=== PATIENT | female | born 1955 | race Caucasian/White ===

== ENCOUNTER 2017-10-10 13:45 | Emergency (ER) | payer MEDICARE, OTHER ==
[~2017-10-10] VITALS: Ht 162.6 cm; Wt 63.6 kg
[~2017-10-10 13:45] MED LIST: ACYC-202 PO; AMLO2.5T2 PO; DICL1ADH18 TD; HYDR-3965 PO; ONDA8TAB6 PO; THY15T PO; VAL5T PO
[2017-10-10] MEDS ORDERED: LORazepam 2 mg/ml vial IV ONE (15:00)
[2017-10-10] MEDS ORDERED: normal saline 1000ML IV soln IVB ONE (15:00)
[2017-10-10] MEDS ORDERED: metoclopramide 5 mg/ml inj IV ONE (15:00)
[2017-10-10] MEDS ORDERED: diphenhydrAMINE 50 mg/ml inj IV ONE (15:00)
[2017-10-10] MEDS ORDERED: ketorolac tromethamine 15mg/ml inj. IV ONE (15:05)
[2017-10-10 16:01] LABS: BASOPHILS % (AUTO) 0.2 % (0-1); EOSINOPHILS % (AUTO) 0 % (0-6); HEMATOCRIT 43.6 % (35.0-45.0); HEMOGLOBIN 14.9 g/dl (12.0-16.0); LYMPHOCYTES # (AUTO) 1.8 X10'3 (1.1-4.8); LYMPHOCYTES % (AUTO) 9.6 % (21-51); MEAN CORPUSCULAR HEMOGLOBIN 29.7 PG (27.0-31.0); MEAN CORPUSCULAR HGB CONC 34.1 % (33.0-36.5); MEAN PLATELET VOLUME 8.6 FL (7.4-10.4); MONOCYTES # (AUTO) 1.2 X10'3 (0-0.9); MONOCYTES % (AUTO) 6.4 % (2-12); NEUTROPHILS # (AUTO) 16.1 X10'3 (1.8-7.7); NEUTROPHILS % (AUTO) 83.8 % (42-75); PLATELET COUNT 250 X10'3 (140-440); RED BLOOD COUNT 5.01 X10'6 (4.20-5.60); RED CELL DISTRIBUTION WIDTH 14.5 % (11.5-14.5); WHITE BLOOD COUNT 19.2 X10'3 (4.5-11.0)
[2017-10-10 16:30] LABS: ALANINE AMINOTRANSFERASE 49 U/L (12-78); ALBUMIN 4.2 G/DL (3.4-5.0); ALBUMIN/GLOBULIN RATIO 1.4 (1.1-1.5); ALKALINE PHOSPHATASE 60 IU/L (46-116); ANION GAP 12 (8-16); ASPARTATE AMINO TRANSFERASE 20 U/L (10-37); BILIRUBIN,TOTAL 0.4 MG/DL (0.1-1.0); BLOOD UREA NITROGEN 22 MG/DL (7-18); BUN/CREATININE RATIO 23.9 (6.6-38.0); CALCIUM 8.2 MG/DL (8.5-10.1); CHLORIDE 104 MMOL/L (99-107); CREATININE 0.92 MG/DL (0.40-0.90); GLUCOSE 174 MG/DL (70-104); LIPASE 71 U/L (73-393); POTASSIUM 3.5 MMOL/L (3.5-5.1); SODIUM 140 MMOL/L (135-145); TOTAL CARBON DIOXIDE 24.4 MMOL/L (24-32); TOTAL PROTEIN 7.1 G/DL (6.4-8.2); eGFR 62 ML/MIN
[2017-10-10 16:46] LABS: CLARITY,URINE CLEAR (Clear); COLOR,URINE YELLOW (Yellow); GLUCOSE, URINE 250 mg/dl (Neg); KETONES,URINE TRACE mg/dl (Neg); LEUKOCYTE ESTERASE ,URINE NEGATIVE (Neg); NITRITES, URINE NEGATIVE (Neg); OCCULT BLOOD,URINE LARGE (Neg); PROTEIN,URINE NEGATIVE (Neg); UROBILINOGEN,URINE 0.2 E.U/dL (0.2-1.0)
[2017-10-10 16:50] LABS: UA COLLECTION TYPE CLN CATCH MIDSTREAM
[2017-10-10 16:52] LABS: BACTERIA,URINE FEW /HPF (Neg); MUCUS STRANDS FEW /LPF (Neg); SQUAMOUS EPITHELIAL CELL,UR FEW /LPF (FEW); WBC,URINE 0-4 /HPF (0-4)
[2017-10-10 17:31] VITALS: BP 120/72
[2017-10-10] MEDS ORDERED: ONDA4TAB9 SL (17:59)
[2017-10-10] MEDS ORDERED: LORA-269 PO (17:59)
[2017-10-10] MEDS ORDERED: FLO0.4C PO (17:59)
== END 2017-10-10 19:06 | disposition home or self-care (01) ==
LOC: ER 13:46
DX: N20.0 Calculus of kidney (principal); R16.0 Hepatomegaly, not elsewhere classified; D72.829 Elevated white blood cell count, unspecified; E78.00 Pure hypercholesterolemia, unspecified; E03.9 Hypothyroidism, unspecified; Z90.710 Acquired absence of both cervix and uterus; Z79.899 Other long term (current) drug therapy
CPT/HCPCS: 36415; 74176; 80053; 81001; 83605; 83690; 84145; 85025; 85610; 96361; 96374; 96375; 99285; J1200; J1885; J2060; J2765; J7030

== ENCOUNTER 2018-10-25 23:36 | Inpatient (IN) | payer MEDICARE, OTHER ==
[~2018-10-25] VITALS: Ht 162.6 cm; Wt 59.1 kg
[~2018-10-25 23:36] MED LIST changes: +LORA-269 PO
[2018-10-26 00:33] LABS: EOSINOPHILS % (AUTO) 0 % (0-6); HEMOGLOBIN 17.4 g/dl (12.0-16.0)
[2018-10-26 00:34] LABS: BASOPHILS % (AUTO) 0.2 % (0-1); HEMATOCRIT 50.4 % (35.0-45.0); LYMPHOCYTES # (AUTO) 1.7 X10'3 (1.1-4.8); LYMPHOCYTES % (AUTO) 7.4 % (21-51); MEAN CORPUSCULAR HEMOGLOBIN 29.7 PG (27.0-31.0); MEAN CORPUSCULAR HGB CONC 34.5 g/dL (33.0-36.5); MEAN PLATELET VOLUME 9.6 FL (7.4-10.4); MONOCYTES % (AUTO) 4.5 % (2-12); NEUTROPHILS # (AUTO) 20.1 X10'3 (1.8-7.7); NEUTROPHILS % (AUTO) 87.9 % (42-75); PLATELET COUNT 295 X10'3 (140-440); RED BLOOD COUNT 5.86 X10'6 (4.20-5.60); RED CELL DISTRIBUTION WIDTH 14.8 % (11.5-14.5); WHITE BLOOD COUNT 22.9 X10'3 (4.5-11.0)
[2018-10-26 00:40] LABS: ALANINE AMINOTRANSFERASE 46 U/L (12-78); ALBUMIN 4.8 G/DL (3.4-5.0); ALBUMIN/GLOBULIN RATIO 1.2 (1.1-1.5); ALKALINE PHOSPHATASE 89 IU/L (46-116); ANION GAP 19 (8-16); BILIRUBIN,TOTAL 0.7 MG/DL (0.1-1.0); BLOOD UREA NITROGEN 17 MG/DL (7-18); BUN/CREATININE RATIO 17.3 (6.6-38.0); CHLORIDE 99 MMOL/L (99-107); CREATININE 0.98 MG/DL (0.40-0.90); GLUCOSE 286 MG/DL (70-104); SODIUM 137 MMOL/L (135-145); TOTAL CARBON DIOXIDE 18.9 MMOL/L (24-32); TOTAL PROTEIN 8.8 G/DL (6.4-8.2); eGFR 58 ML/MIN
[2018-10-26 00:41] LABS: URINE HCG NEGATIVE (NEG)
[2018-10-26 00:43] LABS: ASPARTATE AMINO TRANSFERASE 31 U/L (10-37); CALCIUM 9.9 MG/DL (8.5-10.1)
[2018-10-26 01:25] LABS: CLARITY,URINE CLEAR (Clear); COLOR,URINE YELLOW (Yellow); GLUCOSE, URINE >=1000 mg/dl (Neg); KETONES,URINE 15 mg/dl (Neg); LEUKOCYTE ESTERASE ,URINE NEGATIVE (Neg); NITRITES, URINE NEGATIVE (Neg); OCCULT BLOOD,URINE MODERATE (Neg); PH,URINE 5.5 (4.8-8.0); PROTEIN,URINE >=300 mg/dl (Neg); UROBILINOGEN,URINE 0.2 E.U/dL (0.2-1.0)
[2018-10-26 01:33] LABS: UA COLLECTION TYPE CLN CATCH MIDSTREAM
[2018-10-26] MEDS ORDERED: ondansetron/PF 4mg/2ml inj IV ONE ×2 (01:35→06:50)
--- NOTE | 2018-10-26 01:57 | NUR ---
PT DESCRIBES HER PAIN "BURNING IN MY THROAT" OR "MY STOMACH IS CRAMPING." ASKED MD FOR HUNG AND MD ELIZABET ORDERED ELIZABET.
[2018-10-26 02:28] LABS: WBC,URINE 0-4 /HPF (0-4)
[2018-10-26 02:29] LABS: BACTERIA,URINE NONE SEEN /HPF (Neg); MUCUS STRANDS MODERATE /LPF (Neg); SQUAMOUS EPITHELIAL CELL,UR FEW /LPF (FEW)
[2018-10-26] MEDS ORDERED: famotidine/PF 10 mg/ml inj IV ONE (02:30)
[2018-10-26] MEDS ORDERED: normal saline 1000ML IV soln IVB ONE ×2 (02:30→04:50)
[2018-10-26 02:40] LABS: LIPASE 51 U/L (73-393)
--- NOTE | 2018-10-26 03:05 | NUR ---
CALLED LAB ABOUT PROLONGED LAB RESULTS. NO EXPLANATION FOR TIME
--- NOTE | 2018-10-26 03:09 | NUR ---
PT SLEEPING IN ROOM. SIDE RAILS UP. WILL CONTINUE TO MONITOR.
[2018-10-26 03:10] LABS: LARGE PLATELETS FEW; PLATELET ESTIMATE NORMAL
--- NOTE | 2018-10-26 03:18 | NUR ---
MD JENKINS AWARE OF WBC FINALLY RESULTING. ORDERS EXPECTED.
[2018-10-26] MEDS ORDERED: piperacillin/tazo 3.375gm/50ml 50 ML IV ONE (04:55)
[2018-10-26] MEDS: normal saline 1000ml 1,000 ML IV ONE ×2 (05:04→06:34)
[2018-10-26] MEDS ORDERED: iohexol 300mg/ml 100ml inj. ONE (05:04)
--- NOTE | 2018-10-26 05:46 | NUR ---
ASKED PT IF SHE WOULD LIKE THE PRN MORPHINE THAT MD ORDERED, PT REFUSED AND STATED "I'M NOT LIKE THAT. I DON'T WANT THAT STUFF."
[2018-10-26] MEDS: morphine 2 MG/ML inj. syringe IV PRN ×2 (06:29→08:51)
[2018-10-26] MEDS: normal saline 1000ml 1,000 ML IV SCH ×3 (08:44→23:29)
[2018-10-26] MEDS ORDERED: magnesium Cl slow-release 64mg tablet PO PRN (08:45)
[2018-10-26] MEDS ORDERED: HYDROcodone/acetaminophen 10/325mg tab PO PRN (08:45)
[2018-10-26] MEDS ORDERED: HYDROcodone/acetaminophen 5mg/325mg tablet PO PRN ×2 (08:45→13:40)
[2018-10-26] MEDS ORDERED: magnesium 4gm in 100ml NS 100 ML IV PRN (08:45)
[2018-10-26] MEDS ORDERED: potassium Cl 20 mEq SR tablet PO PRN (08:45)
[2018-10-26] MEDS ORDERED: bisacodyl 10mg suppository rectal RC PRN (08:45)
[2018-10-26] MEDS ORDERED: acetaminophen 325mg tablet PO PRN (08:45)
[2018-10-26] MEDS ORDERED: magnesium 2GM in 50ml NS 50 ML IV PRN (08:45)
[2018-10-26] MEDS ORDERED: LOSA25TA96 PO (08:47)
[2018-10-26] MEDS ORDERED: THY60T PO (08:47)
[2018-10-26] MEDS ORDERED: AMLO-309 PO (08:47)
[2018-10-26] MEDS ORDERED: PANT40TA4 PO (08:47)
[2018-10-26] MEDS ORDERED: ACYC-202 PO (08:47)
[2018-10-26] MEDS ORDERED: nifedipine PO (08:47)
[2018-10-26] MEDS ORDERED: losartan 25mg tablet PO ONE (09:05)
[2018-10-26] MEDS ORDERED: losartan 25mg tablet PO SCH (09:05)
--- NOTE | 2018-10-26 09:30 | NUR ---
Report received from ED RNBal.
--- NOTE | 2018-10-26 09:45 | NUR ---
DOMINGO Mas to receive pt instead of myself. Report given.
[2018-10-26] MEDS: metoclopramide 5 mg/ml inj IV PRN ×2 (09:51→18:59)
[2018-10-26] MEDS ORDERED: pantoprazole 40 MG vial IV SCH (09:55)
[2018-10-26 10:00] VITALS: BP 164/87
--- NOTE | 2018-10-26 10:00 | NUR ---
Patient arrived to the floor. VSS. c/o nausea, reglan given
[2018-10-26 11:00] VITALS: BP 156/81
[2018-10-26 13:12] LABS: H PYLORI ANTIBODY NEGATIVE (Neg)
[2018-10-26] MEDS ORDERED: metoclopramide 10mg tablet PO PRN (13:30)
[2018-10-26] MEDS ORDERED: THYR90TA PO (13:48)
[2018-10-26] MEDS: atorvastatin 10mg tablet PO SCH (14:38)
[2018-10-26] MEDS: amLODIPine 2.5mg tablet PO SCH (14:38)
[2018-10-26] MEDS: piperacillin/tazo 3.375gm/50ml 50 ML IV SCH ×2 (16:25→23:57)
[2018-10-26] MEDS: ondansetron/PF 4mg/2ml inj IV PRN ×2 (16:28→22:01)
[2018-10-26] MEDS: mag hydrox/Alum hydrox/simeth 30ml oral suspension PO PRN (17:55)
--- NOTE | 2018-10-26 18:11 | NUR ---
Problems reprioritized. Patient report given, questions answered & plan of care reviewed with DOMINGO Pisano.
[2018-10-26 19:10] VITALS: BP 172/94
[2018-10-26] MEDS ORDERED: temazepam 15mg capsule PO PRN (21:00)
[2018-10-26] MEDS ORDERED: ATORVASTATIN PO SCH (21:00)
[2018-10-26] MEDS ORDERED: AMLODIPINE PO SCH (21:00)
[2018-10-26] MEDS: diatr meglu/diatrizoate 30ml oral sol.-(3 dose) bottle PO SCH (21:31)
[2018-10-26] MEDS: lactobacillus rhamnosus 10,000 MMU CELLS/CAPSULE PO SCH (21:31)
[2018-10-27] VITALS (8 sets, daily range): BP systolic 105–172; BP diastolic 74–98
[2018-10-27] MEDS: metoclopramide 5 mg/ml inj IV PRN ×2 (02:22→23:26)
[2018-10-27] MEDS: mag hydrox/Alum hydrox/simeth 30ml oral suspension PO PRN ×3 (04:26→17:27)
[2018-10-27 05:17] LABS: BASOPHILS # (AUTO) 0.1 X10'3 (0-0.2); BASOPHILS % (AUTO) 0.3 % (0-1); EOSINOPHILS % (AUTO) 0.1 % (0-6); HEMATOCRIT 49.5 % (35.0-45.0); HEMOGLOBIN 16.9 g/dl (12.0-16.0); LYMPHOCYTES # (AUTO) 3.2 X10'3 (1.1-4.8); LYMPHOCYTES % (AUTO) 14.5 % (21-51); MEAN CORPUSCULAR HEMOGLOBIN 29.3 PG (27.0-31.0); MEAN CORPUSCULAR HGB CONC 34.1 g/dL (33.0-36.5); MEAN CORPUSCULAR VOLUME 85.8 FL (78-98); MEAN PLATELET VOLUME 9.3 FL (7.4-10.4); MONOCYTES # (AUTO) 1.5 X10'3 (0-0.9); MONOCYTES % (AUTO) 6.8 % (2-12); NEUTROPHILS # (AUTO) 17.6 X10'3 (1.8-7.7); NEUTROPHILS % (AUTO) 78.3 % (42-75); PLATELET COUNT 281 X10'3 (140-440); RED BLOOD COUNT 5.77 X10'6 (4.20-5.60); RED CELL DISTRIBUTION WIDTH 14.7 % (11.5-14.5); WHITE BLOOD COUNT 22.5 X10'3 (4.5-11.0)
[2018-10-27 05:40] LABS: ALBUMIN 4.3 G/DL (3.4-5.0); ALBUMIN/GLOBULIN RATIO 1.2 (1.1-1.5); ANION GAP 15 (8-16); ASPARTATE AMINO TRANSFERASE 26 U/L (10-37); BLOOD UREA NITROGEN 9 MG/DL (7-18); BUN/CREATININE RATIO 14.5 (6.6-38.0); CHLORIDE 101 MMOL/L (99-107); CREATININE 0.62 MG/DL (0.40-0.90); GLUCOSE 155 MG/DL (70-104); MAGNESIUM 2.3 MG/DL (1.5-2.4); PHOSPHORUS 1.5 MG/DL (2.3-4.5); SODIUM 138 MMOL/L (135-145); TOTAL CARBON DIOXIDE 22.5 MMOL/L (24-32); TOTAL PROTEIN 7.9 G/DL (6.4-8.2); eGFR > 90 ML/MIN
[2018-10-27 05:41] LABS: ALANINE AMINOTRANSFERASE 37 U/L (12-78); ALKALINE PHOSPHATASE 82 IU/L (46-116)
[2018-10-27 06:21] LABS: POTASSIUM 2.9 MMOL/L (3.5-5.1)
--- NOTE | 2018-10-27 06:49 | NUR ---
Problems reprioritized. Patient report given, questions answered & plan of care reviewed with MIKA. Addendum: 10/27/18 at 0649 by Brett Preston RN Amended: Links added.
[2018-10-27] MEDS: diatr meglu/diatrizoate 30ml oral sol.-(3 dose) bottle PO SCH ×2 (07:24→13:45)
[2018-10-27] MEDS: potassium CL 10mEq/100ml bag 100 ML IV PRN ×3 (07:24→21:42)
[2018-10-27] MEDS: enoxaparin 40mg/0.4ml syringe SQ SCH (08:00)
[2018-10-27] MEDS: K and/or MAG REPLACEMENT MC SCH (08:00)
[2018-10-27] MEDS ORDERED: iohexol 300mg/ml 100ml inj. ONE (09:05)
[2018-10-27] MEDS: HYDROmorphone inj. 0.5 MG/0.5 ML DISP.SYRIN IV PRN (09:27)
[2018-10-27] MEDS: piperacillin/tazo 3.375gm/50ml 50 ML IV SCH ×3 (10:09→23:27)
[2018-10-27] MEDS: amLODIPine 2.5mg tablet PO SCH (11:07)
[2018-10-27] MEDS: thyroid, pork 30mg tablet PO SCH (11:07)
[2018-10-27] MEDS: losartan 25mg tablet PO SCH (11:08)
[2018-10-27] MEDS: atorvastatin 10mg tablet PO SCH (11:08)
[2018-10-27] MEDS: lactobacillus rhamnosus 10,000 MMU CELLS/CAPSULE PO SCH ×2 (11:08→19:59)
--- NOTE | 2018-10-27 11:24 | NUR ---
Malnutrition consult: Per wt hx pt -4.55 kg since last visit with documented wt of 63.64 kg 10/10/17, this is non-significant wt loss of 7% in one year. Pt currently NPO. Pt with no documented decrease in muscle strength and no edema. Per H&P pt appears well-nourished. Pt currently does not meet criteria for malnutrition. Will continue to follow. Addendum: 10/27/18 at [address] Amended: Links added.
[2018-10-27 11:32] LABS: HEMOGLOBIN A1C 5.8 % (4.5-6.2)
[2018-10-27] MEDS: potassium Cl 20 mEq SR tablet PO PRN ×2 (12:12→17:24)
[2018-10-27] MEDS: normal saline 1000ml 1,000 ML IV SCH (12:13)
[2018-10-27] MEDS ORDERED: LIDOcaine Viscous 15ml cup ONE (13:21)
[2018-10-27] MEDS ORDERED: MIDAZolam 5mg/5ml vial ONE (13:21)
[2018-10-27] MEDS ORDERED: fentaNYL/PF 50MCG/1 ML 2ML syringe ONE (13:21)
[2018-10-27] MEDS: ESOMEPRAZOLE 40 MG VIAL IV SCH (15:36)
[2018-10-27] MEDS ORDERED: Potassium Cl inj 20 MEQ in normal saline 1000ml 990 ML IV SCH (16:30)
--- NOTE | 2018-10-27 18:27 | NUR ---
Problems reprioritized. Patient report given, questions answered & plan of care reviewed with DOMINGO Enriquez.
--- NOTE | 2018-10-27 18:44 | NUR ---
Patient in room [facility]. I have received report from DOMINGO Meehan and had the opportunity to ask questions and assume patient care.
[2018-10-27] MEDS: ondansetron/PF 4mg/2ml inj IV PRN (21:02)
[2018-10-27] MEDS ORDERED: normal saline 1000ml 1,000 ML IV PRN (21:30)
[2018-10-28 00:56] VITALS: BP 180/96
[2018-10-28] MEDS: potassium CL 10mEq/100ml bag 100 ML IV PRN (01:06)
[2018-10-28] MEDS: potassium Cl 20mEq in NS 1,000 ML IV SCH ×3 (02:57→16:23)
[2018-10-28] MEDS: metoclopramide 5 mg/ml inj IV PRN ×2 (04:54→20:09)
[2018-10-28 04:59] LABS: BASOPHILS # (AUTO) 0.1 X10'3 (0-0.2); BASOPHILS % (AUTO) 0.5 % (0-1); EOSINOPHILS % (AUTO) 0.1 % (0-6); HEMATOCRIT 48.4 % (35.0-45.0); HEMOGLOBIN 16.2 g/dl (12.0-16.0); LYMPHOCYTES # (AUTO) 3.8 X10'3 (1.1-4.8); LYMPHOCYTES % (AUTO) 21.2 % (21-51); MEAN CORPUSCULAR HGB CONC 33.5 g/dL (33.0-36.5); MEAN CORPUSCULAR VOLUME 86.4 FL (78-98); MEAN PLATELET VOLUME 8.9 FL (7.4-10.4); MONOCYTES # (AUTO) 1.6 X10'3 (0-0.9); MONOCYTES % (AUTO) 8.7 % (2-12); NEUTROPHILS # (AUTO) 12.6 X10'3 (1.8-7.7); NEUTROPHILS % (AUTO) 69.5 % (42-75); PLATELET COUNT 281 X10'3 (140-440); RED CELL DISTRIBUTION WIDTH 14.6 % (11.5-14.5); WHITE BLOOD COUNT 18.1 X10'3 (4.5-11.0)
[2018-10-28 05:24] LABS: ANION GAP 12 (8-16); BILIRUBIN,TOTAL 0.9 MG/DL (0.1-1.0); BLOOD UREA NITROGEN 10 MG/DL (7-18); BUN/CREATININE RATIO 23.8 (6.6-38.0); CALCIUM 8.5 MG/DL (8.5-10.1); CHLORIDE 102 MMOL/L (99-107); CREATININE 0.42 MG/DL (0.40-0.90); GLUCOSE 127 MG/DL (70-104); MAGNESIUM 2.4 MG/DL (1.5-2.4); POTASSIUM 3.9 MMOL/L (3.5-5.1); SODIUM 136 MMOL/L (135-145); TOTAL CARBON DIOXIDE 22.1 MMOL/L (24-32); TOTAL PROTEIN 7.2 G/DL (6.4-8.2); eGFR > 90 ML/MIN
[2018-10-28 05:25] LABS: ALANINE AMINOTRANSFERASE 37 U/L (12-78); ALBUMIN/GLOBULIN RATIO 1.3 (1.1-1.5); ALKALINE PHOSPHATASE 78 IU/L (46-116); ASPARTATE AMINO TRANSFERASE 19 U/L (10-37)
[2018-10-28 05:29] LABS: PHOSPHORUS 1.1 MG/DL (2.3-4.5)
--- NOTE | 2018-10-28 06:12 | NUR ---
Problems reprioritized. Patient report given, questions answered & plan of care reviewed with DOMINGO Child. Addendum: 10/28/18 at 0615 by Mina Britton RN DOMINGO Snow
--- NOTE | 2018-10-28 06:30 | NUR ---
Patient in room [facility]. I have received report from Mina LANE and had the opportunity to ask questions and assume patient care.
[2018-10-28 07:59] VITALS: BP 160/87
[2018-10-28] MEDS: atorvastatin 10mg tablet PO SCH (08:00)
[2018-10-28] MEDS: enoxaparin 40mg/0.4ml syringe SQ SCH (08:00)
[2018-10-28] MEDS: thyroid, pork 30mg tablet PO SCH (08:00)
[2018-10-28] MEDS: duloxetine 20mg capsule.DR PO SCH (08:00)
[2018-10-28] MEDS: lactobacillus rhamnosus 10,000 MMU CELLS/CAPSULE PO SCH ×2 (08:00→20:12)
[2018-10-28] MEDS: K and/or MAG REPLACEMENT MC SCH (08:00)
[2018-10-28] MEDS: losartan 25mg tablet PO SCH (08:10)
[2018-10-28] MEDS: amLODIPine 2.5mg tablet PO SCH (08:10)
[2018-10-28] MEDS: piperacillin/tazo 3.375gm/50ml 50 ML IV SCH ×2 (08:10→15:11)
[2018-10-28] MEDS: ESOMEPRAZOLE 40 MG VIAL IV SCH (08:10)
[2018-10-28] MEDS ORDERED: sodium phosphate inj. 30 MMOL in dextrose 5%-water 250 ML IV ONE (09:00)
[2018-10-28] MEDS ORDERED: losartan 50mg tablet PO ONE (09:30)
[2018-10-28] MEDS ORDERED: amLODIPine 5mg tablet PO ONE (09:30)
[2018-10-28] MEDS: ondansetron/PF 4mg/2ml inj IV PRN (09:43)
[2018-10-28] MEDS: Neutra Phos packet PO PRN (10:46)
[2018-10-28 12:05] VITALS: BP 166/80
[2018-10-28] MEDS ORDERED: methylnaltrexone br 12mg/0.6ml inj***SubQ only SQ ONE (12:18)
[2018-10-28] MEDS: rifaximin 550mg tablet PO SCH ×2 (13:00→20:12)
[2018-10-28] MEDS: acetaminophen 325mg tablet PO PRN ×2 (13:09→20:11)
[2018-10-28] MEDS: ketorolac tromethamine 15mg/ml inj. IV PRN (16:26)
--- NOTE | 2018-10-28 17:41 | NUR ---
paged regarding BP 172/79. Awaiting callback.
--- NOTE | 2018-10-28 18:50 | NUR ---
Problems reprioritized. Patient report given, questions answered & plan of care reviewed with Mina LANE.
[2018-10-28 20:00] VITALS: BP 169/86
[2018-10-29] MEDS: mag hydrox/Alum hydrox/simeth 30ml oral suspension PO PRN (00:52)
[2018-10-29] MEDS: piperacillin/tazo 3.375gm/50ml 50 ML IV SCH ×2 (00:53→07:54)
[2018-10-29] MEDS: magnesium hydroxide 30ml (MOM) UD suspension PO PRN ×2 (00:53→19:53)
[2018-10-29] MEDS: ondansetron/PF 4mg/2ml inj IV PRN ×3 (01:28→17:50)
--- NOTE | 2018-10-29 02:40 | NUR ---
0205: Charge nurse answered patients light. Patient complained of chest pain,tightness, nausea, and not feeling well. I had administered Zofran at 0128. Charge nurse took EKG. Dr. Schaffer notified, but unavailable to look at it. Took to the ER for review. Non Stemi. Will continue to monitor.
[2018-10-29 03:48] VITALS: BP 155/82
[2018-10-29 05:00] LABS: BASOPHILS # (AUTO) 0.1 X10'3 (0-0.2); BASOPHILS % (AUTO) 0.5 % (0-1); EOSINOPHILS # (AUTO) 0.1 X10'3 (0-0.9); EOSINOPHILS % (AUTO) 0.5 % (0-6); HEMATOCRIT 47.4 % (35.0-45.0); HEMOGLOBIN 16.2 g/dl (12.0-16.0); LYMPHOCYTES # (AUTO) 3.6 X10'3 (1.1-4.8); MEAN CORPUSCULAR HEMOGLOBIN 29.3 PG (27.0-31.0); MEAN CORPUSCULAR HGB CONC 34.1 g/dL (33.0-36.5); MEAN CORPUSCULAR VOLUME 85.9 FL (78-98); MEAN PLATELET VOLUME 8.9 FL (7.4-10.4); MONOCYTES # (AUTO) 1.1 X10'3 (0-0.9); NEUTROPHILS # (AUTO) 9.1 X10'3 (1.8-7.7); PLATELET COUNT 266 X10'3 (140-440); RED BLOOD COUNT 5.52 X10'6 (4.20-5.60); RED CELL DISTRIBUTION WIDTH 14.7 % (11.5-14.5); WHITE BLOOD COUNT 13.9 X10'3 (4.5-11.0)
[2018-10-29] MEDS: potassium Cl 20mEq in NS 1,000 ML IV SCH ×2 (05:01→18:22)
[2018-10-29 05:15] LABS: ALANINE AMINOTRANSFERASE 34 U/L (12-78); ALBUMIN/GLOBULIN RATIO 1.3 (1.1-1.5); ALKALINE PHOSPHATASE 73 IU/L (46-116); ANION GAP 11 (8-16); ASPARTATE AMINO TRANSFERASE 21 U/L (10-37); BLOOD UREA NITROGEN 11 MG/DL (7-18); BUN/CREATININE RATIO 21.2 (6.6-38.0); CALCIUM 8.7 MG/DL (8.5-10.1); CHLORIDE 104 MMOL/L (99-107); CREATININE 0.52 MG/DL (0.40-0.90); GLUCOSE 135 MG/DL (70-104); MAGNESIUM 2.3 MG/DL (1.5-2.4); PHOSPHORUS 1.8 MG/DL (2.3-4.5); POTASSIUM 3.3 MMOL/L (3.5-5.1); SODIUM 139 MMOL/L (135-145); TOTAL CARBON DIOXIDE 23.7 MMOL/L (24-32); TOTAL PROTEIN 7.1 G/DL (6.4-8.2); eGFR > 90 ML/MIN
--- NOTE | 2018-10-29 06:35 | NUR ---
Patient in room [facility]. I have received report from DOMINGO Enriquez and had the opportunity to ask questions and assume patient care.
--- NOTE | 2018-10-29 06:35 | NUR ---
Problems reprioritized. Patient report given, questions answered & plan of care reviewed with DOMINGO Goldsmith.
[2018-10-29 07:00] VITALS: BP 151/78
[2018-10-29] MEDS: K and/or MAG REPLACEMENT MC SCH (07:43)
[2018-10-29] MEDS: ESOMEPRAZOLE 40 MG VIAL IV SCH (07:54)
[2018-10-29] MEDS: enoxaparin 40mg/0.4ml syringe SQ SCH (07:55)
[2018-10-29] MEDS: lactobacillus rhamnosus 10,000 MMU CELLS/CAPSULE PO SCH ×2 (07:57→19:53)
[2018-10-29] MEDS: losartan 25mg tablet PO SCH (07:57)
[2018-10-29] MEDS: duloxetine 20mg capsule.DR PO SCH (07:57)
[2018-10-29] MEDS: atorvastatin 10mg tablet PO SCH (07:57)
[2018-10-29] MEDS: amLODIPine 2.5mg tablet PO SCH (07:58)
[2018-10-29] MEDS: thyroid, pork 30mg tablet PO SCH (07:59)
[2018-10-29] MEDS: rifaximin 550mg tablet PO SCH ×3 (07:59→21:17)
[2018-10-29] MEDS: acetaminophen 325mg tablet PO PRN ×2 (08:02→19:52)
[2018-10-29 11:00] VITALS: BP 144/81
[2018-10-29] MEDS ORDERED: magnesium 4gm in 100ml NS 100 ML IV PRN (12:05)
[2018-10-29] MEDS ORDERED: potassium Cl 20 mEq SR tablet PO PRN (12:05)
[2018-10-29] MEDS ORDERED: magnesium Cl slow-release 64mg tablet PO PRN (12:05)
[2018-10-29] MEDS ORDERED: potassium CL 10mEq/100ml bag 100 ML IV PRN (12:05)
[2018-10-29] MEDS: metoclopramide 5 mg/ml inj IV PRN (13:19)
[2018-10-29] MEDS: potassium Cl 20 mEq SR tablet PO PRN ×2 (13:20→17:50)
[2018-10-29] MEDS: ALPRAZolam 0.25mg tablet PO PRN ×2 (13:20→21:17)
[2018-10-29] MEDS: Neutra Phos packet PO PRN (13:21)
--- NOTE | 2018-10-29 18:00 | NUR ---
Patient in room [facility]. I have received report from Rupal LANE and had the opportunity to ask questions and assume patient care.
--- NOTE | 2018-10-29 18:37 | NUR ---
Problems reprioritized. Patient report given, questions answered & plan of care reviewed with DOMINGO Palomo.
[2018-10-29 19:00] VITALS: BP 168/83
[2018-10-29] MEDS: potassium cl 20mEq in 1/2 NS 1,000 ML IV SCH (19:55)
[2018-10-29] MEDS: metoclopramide 5 mg/ml inj IV SCH (22:04)
[2018-10-30] VITALS: BP 161/79
[2018-10-30] MEDS: acetaminophen 325mg tablet PO PRN ×2 (01:56→19:01)
[2018-10-30] MEDS: metoclopramide 5 mg/ml inj IV SCH ×3 (02:54→13:29)
[2018-10-30 05:22] LABS: BASOPHILS # (AUTO) 0.1 X10'3 (0-0.2); BASOPHILS % (AUTO) 0.5 % (0-1); EOSINOPHILS # (AUTO) 0.1 X10'3 (0-0.9); EOSINOPHILS % (AUTO) 1.1 % (0-6); HEMATOCRIT 47.3 % (35.0-45.0); HEMOGLOBIN 15.9 g/dl (12.0-16.0); LYMPHOCYTES # (AUTO) 4.3 X10'3 (1.1-4.8); LYMPHOCYTES % (AUTO) 34.3 % (21-51); MEAN CORPUSCULAR HGB CONC 33.6 g/dL (33.0-36.5); MEAN CORPUSCULAR VOLUME 86.3 FL (78-98); MEAN PLATELET VOLUME 8.7 FL (7.4-10.4); MONOCYTES # (AUTO) 1.1 X10'3 (0-0.9); MONOCYTES % (AUTO) 8.9 % (2-12); NEUTROPHILS % (AUTO) 55.2 % (42-75); PLATELET COUNT 268 X10'3 (140-440); RED BLOOD COUNT 5.49 X10'6 (4.20-5.60); RED CELL DISTRIBUTION WIDTH 14.5 % (11.5-14.5); WHITE BLOOD COUNT 12.6 X10'3 (4.5-11.0)
[2018-10-30 05:30] LABS: ALANINE AMINOTRANSFERASE 33 U/L (12-78); ALBUMIN 3.9 G/DL (3.4-5.0); ALBUMIN/GLOBULIN RATIO 1.2 (1.1-1.5); ANION GAP 11 (8-16); ASPARTATE AMINO TRANSFERASE 19 U/L (10-37); BILIRUBIN,TOTAL 0.8 MG/DL (0.1-1.0); BLOOD UREA NITROGEN 11 MG/DL (7-18); BUN/CREATININE RATIO 26.8 (6.6-38.0); CALCIUM 8.7 MG/DL (8.5-10.1); CHLORIDE 103 MMOL/L (99-107); CREATININE 0.41 MG/DL (0.40-0.90); GLUCOSE 105 MG/DL (70-104); MAGNESIUM 2.1 MG/DL (1.5-2.4); PHOSPHORUS 1.6 MG/DL (2.3-4.5); SODIUM 136 MMOL/L (135-145); TOTAL CARBON DIOXIDE 21.7 MMOL/L (24-32); TOTAL PROTEIN 7.1 G/DL (6.4-8.2); eGFR > 90 ML/MIN
[2018-10-30 05:55] LABS: ALKALINE PHOSPHATASE 67 IU/L (46-116)
--- NOTE | 2018-10-30 06:30 | NUR ---
Patient in room [facility]. I have received report from DOMINGO Palomo and had the opportunity to ask questions and assume patient care.
--- NOTE | 2018-10-30 06:32 | NUR ---
Problems reprioritized. Patient report given, questions answered & plan of care reviewed with antoine LANE.
[2018-10-30 07:00] VITALS: BP 169/75
[2018-10-30] MEDS: K and/or MAG REPLACEMENT MC SCH (07:48)
[2018-10-30] MEDS: enoxaparin 40mg/0.4ml syringe SQ SCH (07:55)
[2018-10-30] MEDS: ESOMEPRAZOLE 40 MG VIAL IV SCH (07:57)
[2018-10-30] MEDS: lactobacillus rhamnosus 10,000 MMU CELLS/CAPSULE PO SCH ×2 (07:58→19:41)
[2018-10-30] MEDS: losartan 25mg tablet PO SCH (07:58)
[2018-10-30] MEDS: duloxetine 20mg capsule.DR PO SCH (07:59)
[2018-10-30] MEDS: amLODIPine 2.5mg tablet PO SCH (07:59)
[2018-10-30] MEDS: atorvastatin 10mg tablet PO SCH (07:59)
[2018-10-30] MEDS: thyroid, pork 30mg tablet PO SCH (08:00)
[2018-10-30] MEDS ORDERED: methylnaltrexone br 12mg/0.6ml inj***SubQ only SQ SCH (08:00)
[2018-10-30] MEDS: rifaximin 550mg tablet PO SCH ×3 (08:00→21:18)
[2018-10-30] MEDS: Neutra Phos packet PO PRN ×2 (08:05→13:29)
[2018-10-30] MEDS: potassium cl 20mEq in 1/2 NS 1,000 ML IV SCH ×2 (08:05→21:18)
--- NOTE | 2018-10-30 10:16 | NUR ---
Initial: Pt admit with N/V and abdominal pain d/t gastritis. Pt s/p EGD with no results indicating any obvious causes for N/V. Pt obstipated with LBM 10/24, possibly secondary to narcotics per MD notes. Pt just started on routine Relistor and Reglan and with PRN MoM given 10/29 and Dulcolax suppository not yet given. Pt currently on clear liquid diet with 0-25% PO intake likely r/t N/V and obstipation. Will follow closely and monitor need for ONS/additional bowel care pending possible BM following addition of new GI meds. Recommendations: 1) Diet advancement to low fiber/low residue as medically indicated 2) Monitor need for ONS 3) Routine bowel care; monitor need for additional 4) Wt per rx Addendum: 10/30/18 at [address] Amended: Links added.
[2018-10-30 11:00] VITALS: BP 126/76
[2018-10-30] MEDS: ALPRAZolam 0.25mg tablet PO PRN ×2 (13:29→21:18)
--- NOTE | 2018-10-30 18:20 | NUR ---
Problems reprioritized. Patient report given, questions answered & plan of care reviewed with DMOINGO Palomo.
[2018-10-30 19:00] VITALS: BP 177/87
[2018-10-30] MEDS: ondansetron/PF 4mg/2ml inj IV PRN (19:00)
[2018-10-30] MEDS: mag hydrox/Alum hydrox/simeth 30ml oral suspension PO PRN (19:03)
[2018-10-30] MEDS: metoprolol succinate 25mg (24-HOUR) SR. Tablet PO SCH (19:42)
[2018-10-30] MEDS: ketorolac tromethamine 15mg/ml inj. IV PRN (19:42)
[2018-10-30] MEDS: metoclopramide 10mg tablet PO SCH (21:18)
[2018-10-30] MEDS: HYDROmorphone inj. 0.5 MG/0.5 ML DISP.SYRIN IV PRN (22:41)
[2018-10-31] VITALS: BP 155/95
[2018-10-31] MEDS: Neutra Phos packet PO PRN (01:33)
[2018-10-31 05:52] LABS: BASOPHILS # (AUTO) 0.1 X10'3 (0-0.2); BASOPHILS % (AUTO) 0.5 % (0-1); EOSINOPHILS # (AUTO) 0.2 X10'3 (0-0.9); HEMATOCRIT 42.4 % (35.0-45.0); HEMOGLOBIN 14.5 g/dl (12.0-16.0); LYMPHOCYTES # (AUTO) 4.3 X10'3 (1.1-4.8); LYMPHOCYTES % (AUTO) 40.3 % (21-51); MEAN CORPUSCULAR HEMOGLOBIN 29.5 PG (27.0-31.0); MEAN CORPUSCULAR HGB CONC 34.2 g/dL (33.0-36.5); MEAN CORPUSCULAR VOLUME 86.3 FL (78-98); MEAN PLATELET VOLUME 8.6 FL (7.4-10.4); MONOCYTES # (AUTO) 0.9 X10'3 (0-0.9); MONOCYTES % (AUTO) 8.8 % (2-12); NEUTROPHILS # (AUTO) 5.2 X10'3 (1.8-7.7); NEUTROPHILS % (AUTO) 48.4 % (42-75); PLATELET COUNT 256 X10'3 (140-440); RED BLOOD COUNT 4.91 X10'6 (4.20-5.60); RED CELL DISTRIBUTION WIDTH 14.4 % (11.5-14.5); WHITE BLOOD COUNT 10.8 X10'3 (4.5-11.0)
[2018-10-31 06:27] LABS: ALANINE AMINOTRANSFERASE 28 U/L (12-78); ALBUMIN 3.5 G/DL (3.4-5.0); ALBUMIN/GLOBULIN RATIO 1.3 (1.1-1.5); ALKALINE PHOSPHATASE 53 IU/L (46-116); ANION GAP 11 (8-16); ASPARTATE AMINO TRANSFERASE 18 U/L (10-37); BILIRUBIN,TOTAL 0.5 MG/DL (0.1-1.0); BLOOD UREA NITROGEN 16 MG/DL (7-18); BUN/CREATININE RATIO 35.6 (6.6-38.0); CALCIUM 8.5 MG/DL (8.5-10.1); CHLORIDE 103 MMOL/L (99-107); CREATININE 0.45 MG/DL (0.40-0.90); GLUCOSE 112 MG/DL (70-104); MAGNESIUM 2.3 MG/DL (1.5-2.4); PHOSPHORUS 2.7 MG/DL (2.3-4.5); POTASSIUM 4.3 MMOL/L (3.5-5.1); SODIUM 138 MMOL/L (135-145); TOTAL CARBON DIOXIDE 24.4 MMOL/L (24-32); TOTAL PROTEIN 6.2 G/DL (6.4-8.2); eGFR > 90 ML/MIN
--- NOTE | 2018-10-31 06:44 | NUR ---
Patient in room [facility]. I have received report from DOMINGO Palomo and had the opportunity to ask questions and assume patient care.
--- NOTE | 2018-10-31 06:56 | NUR ---
Problems reprioritized. Patient report given, questions answered & plan of care reviewed with Rupal LANE.
[2018-10-31 07:00] VITALS: BP 111/64
[2018-10-31] MEDS: K and/or MAG REPLACEMENT MC SCH (08:00)
[2018-10-31] MEDS: enoxaparin 40mg/0.4ml syringe SQ SCH (08:00)
[2018-10-31] MEDS: losartan 25mg tablet PO SCH (08:00)
[2018-10-31] MEDS: amLODIPine 2.5mg tablet PO SCH (08:00)
[2018-10-31] MEDS: lactobacillus rhamnosus 10,000 MMU CELLS/CAPSULE PO SCH (08:53)
[2018-10-31] MEDS: duloxetine 20mg capsule.DR PO SCH (08:53)
[2018-10-31] MEDS: ESOMEPRAZOLE 40 MG VIAL IV SCH (08:53)
[2018-10-31] MEDS: metoclopramide 10mg tablet PO SCH ×2 (08:53→12:00)
[2018-10-31] MEDS: thyroid, pork 30mg tablet PO SCH (08:54)
[2018-10-31] MEDS: atorvastatin 10mg tablet PO SCH (08:54)
[2018-10-31] MEDS: metoprolol succinate 25mg (24-HOUR) SR. Tablet PO SCH (08:55)
[2018-10-31] MEDS: ALPRAZolam 0.25mg tablet PO PRN (08:55)
[2018-10-31] MEDS: rifaximin 550mg tablet PO SCH ×2 (08:55→13:00)
[2018-10-31 11:00] VITALS: BP 105/51
[2018-10-31] MEDS ORDERED: ALPR-160 PO (12:22)
[2018-10-31] MEDS ORDERED: RIFA550T PO (12:22)
[2018-10-31] MEDS ORDERED: PHE25R PR (12:22)
--- NOTE | 2018-10-31 13:22 | NUR ---
Patient discharged home via and taken from unit via wheelchair with x1 staff. Patient alert, oriented and in no apparent distress at time of discharge. Patient took all belongings with her including discharge instructions. Patient stated an understanding of instructions and was given time for questions and answers. Patients home meds stored in pharmacy were delivered to patient. Patient also took these with her at time of discharge. Patient PIV removed with cannula intact.
== END 2018-10-31 13:20 | disposition home or self-care (01) | DRG 392 ==
LOC: ER 23:36 → SUR 3N 10-26 09:52 → CMPBEDREQ 10-26 20:26
PROVIDERS: ADMIT Family Medicine; ATTEND Family Medicine
PROC: BW211ZZ Computerized Tomography (CT Scan) of Abdomen and Pelvis using Low Osmolar Contrast (ICD-10-PCS; 2018-10-26)
PROC: 0DB68ZX Excision of Stomach, Via Natural or Artificial Opening Endoscopic, Diagnostic (ICD-10-PCS; principal; 2018-10-27)
DX: K58.9 Irritable bowel syndrome, unspecified (principal); N17.9 Acute kidney failure, unspecified; K29.50 Unspecified chronic gastritis without bleeding; B02.9 Zoster without complications; E03.9 Hypothyroidism, unspecified; E78.00 Pure hypercholesterolemia, unspecified; E83.39 Other disorders of phosphorus metabolism; E83.42 Hypomagnesemia; F41.9 Anxiety disorder, unspecified; I10 Essential (primary) hypertension; K31.84 Gastroparesis; R73.9 Hyperglycemia, unspecified; R81 Glycosuria; E87.6 Hypokalemia; M79.7 Fibromyalgia; N28.1 Cyst of kidney, acquired; Z85.820 Personal history of malignant melanoma of skin; Z86.010 Personal history of colon polyps; Z87.442 Personal history of urinary calculi; Z90.711 Acquired absence of uterus with remaining cervical stump; Z88.5 Allergy status to narcotic agent; Z88.8 Allergy status to other drugs, medicaments and biological substances; Z91.040 Latex allergy status
CPT/HCPCS: 36415; 43239; 70470; 74177; 80053; 81001; 81025; 82948; 83036; 83605; 83690; 83735; 84100; 84145; 84443; 85025; 85610; 86677; 87040; 87081; 88305; 88342; 93005; 93975; 96365; 96375; 96376; 99152; 99291; A4620; G0378; J1170; J1650; J1885; J2212; J2250; J2270; J2405; J2543; J2765; J3010; J3480; J3490; J7030; J7040; J7060; J8597; Q9963; Q9967

== ENCOUNTER 2023-06-02 15:14 | Outpatient (CLI) | payer MEDICARE, OTHER ==
[~2023-06-02 15:14] MED LIST changes: +ACYC-129 PO; -ACYC-202 PO; +ALPR0.255 PO; +AMLO-309 PO; -AMLO2.5T2 PO; -DICL1ADH18 TD; -LORA-269 PO; +LOSA-415 PO; +PANT40TA54 PO; +PHE25R PR; +RIFA550T PO; -THY15T PO; +THYR90TA PO; -VAL5T PO; +nifedipine PO
== END 2023-06-02 23:59 | disposition home or self-care (01) ==
LOC: LAB SPEC 15:14
PROVIDERS: ATTEND Surgery
DX: N61.0 Mastitis without abscess (principal)
CPT/HCPCS: 87070